=== PATIENT | male | born 1945 | race Caucasian/White ===

== ENCOUNTER 2022-07-04 16:18 | Inpatient (IN) | payer OTHER, SELFPAY ==
[2022-07-04 17:20] LABS: #Basophils 0.1 thou/uL (0.0-0.2); #Eosinphils 0.3 thou/uL (0.0-0.7); #Lymphocytes 2.1 thou/uL (1.20-3.40); #Monocytes 1.1 thou/uL (0.11-0.59); #Neutrophils 7.5 thou/uL (1.40-6.50); %Basophils 0.8 % (0.0-1.0); %Eosinophils 2.7 % (0.0-10.0); %Lymphocytes 18.9 % (21.0-51.0); %Monocytes 10.1 % (0.0-10.0); %Neutrophils 67.5 % (42.0-75.0); Mean Corpuscular HGB CONC 33.6 g/dL (32.0-36.0); Mean Corpuscular Hemoglobin 31.1 pg (27.0-31.0); Mean Corpuscular Volume 92.4 fl (78.0-98.0); Mean Platelet Volume 7.3 fL (7.4-10.4); Platelet Count 248 10x3/uL (130-400); RBC Distribution Width 12.4 % (11.5-14.5); White Blood Cell (WBC) Count 11.1 10x3/uL (4.8-10.8)
[2022-07-04 17:50] LABS: ALT (SGPT) 15 U/L (8-55); AST (SGOT) 16 U/L (5-34); Albumin 3.8 g/dL (3.4-4.8); Alkaline Phosphatase 85 U/L (40-110); Anion Gap 14 mmol/L (10-20); BUN (Urea Nitrogen) 24 mg/dL (8.4-25.7); Bilirubin, Total 0.2 mg/dL (0.2-1.2); Calc. Creatinine Clearance 0 mL/min (70-130); Calcium 9.5 mg/dL (7.8-10.44); Carbon Dioxide 27 mmol/L (23-31); Chloride 94 mmol/L (98-107); Estimated GFR 59; Globulin 3.8 g/dL (2.4-3.5); Glucose 208 mg/dL (83-110); Potassium 4.3 mmol/L (3.5-5.1); Protein, Total 7.6 g/dL (5.8-8.1); Sodium 131 mmol/L (136-145)
[2022-07-04] MEDS ORDERED: Bacitracin 1 PK ONE (17:51)
[2022-07-04] MEDS ORDERED: Aspirin Chewable 81 MG TAB ONE (18:04)
[2022-07-04] MEDS ORDERED: Ondansetron PF 4 MG/2 ML Vial ONE (18:04)
[2022-07-04] MEDS ORDERED: cefTRIAXone\\ROCEPHIN 2 GM VIAL ONE (18:04)
[2022-07-04 18:45] LABS: Bacteria/HPF None Seen HPF (None Seen); Bilirubin Negative (Negative); Blood, Urine Negative (Negative); Clarity Clear (Clear); Glucose, Urine (Dipstick) 30 mg/dL (Negative); Ketone, Urine Negative (Negative); Leukocyte Negative Leu/uL (Negative); Nitrite Negative (Negative); Protein, Urine (Dipstick) 30 mg/dL (Neg-Trace); RBC/HPF None Seen HPF (0-3); Specific Gravity, Urine 1.011 (1.002-1.036); Squamous Epithelial None Seen HPF (0-3); Urobilinogen Normal mg/dL (Less than 2); WBC/HPF None Seen HPF (0-3)
[2022-07-04] MEDS ORDERED: Dextrose 5% in Water 1,000 ML IV PRN (19:01)
[2022-07-04] MEDS ORDERED: Acetaminophen 325 MG TAB PO PRN (19:01)
[2022-07-04] MEDS ORDERED: Ondansetron ODT 4 MG TAB PO PRN (19:01)
[2022-07-04] MEDS ORDERED: Dextrose 50% Abboject 50 ML SYRINGE SLOW IVP PRN (19:01)
[2022-07-04] MEDS ORDERED: Azithromycin 500 MG VIAL ONE (19:46)
[2022-07-04 20:15] LABS: Hemoglobin A1c 7.9 % (4.0-6.0)
[2022-07-04 20:28] LABS: Troponin I 0.012 ng/mL (< 0.028)
[2022-07-04] MEDS ORDERED: hydrALAZINE 20 MG/ML VIAL SLOW IVP PRN (20:35)
[2022-07-04 21:07] VITALS: BMI 32.3
[2022-07-04] MEDS: metFORMIN 500 MG TAB PO SCH (22:14)
[2022-07-04 22:49] LABS: SARS-CoV-2 NAA Rapid Test Not Detected (NotDetected)
[2022-07-04 23:46] LABS: Troponin I 0.012 ng/mL (< 0.028)
[2022-07-05 05:10] LABS: #Basophils 0.1 thou/uL (0.0-0.2); #Eosinphils 0.3 thou/uL (0.0-0.7); #Lymphocytes 1.7 thou/uL (1.20-3.40); #Neutrophils 7.6 thou/uL (1.40-6.50); %Basophils 0.5 % (0.0-1.0); %Eosinophils 2.5 % (0.0-10.0); %Lymphocytes 16.5 % (21.0-51.0); %Monocytes 9.2 % (0.0-10.0); %Neutrophils 71.4 % (42.0-75.0); Hemoglobin 13.8 g/dL (14.0-18.0); Mean Corpuscular HGB CONC 32.3 g/dL (32.0-36.0); Mean Corpuscular Hemoglobin 30.4 pg (27.0-31.0); Mean Corpuscular Volume 94.3 fl (78.0-98.0); Mean Platelet Volume 7.3 fL (7.4-10.4); Platelet Count 238 10x3/uL (130-400); RBC Distribution Width 12.6 % (11.5-14.5); Red Blood Cell (RBC) Count 4.54 mill/uL (4.70-6.10); White Blood Cell (WBC) Count 10.6 10x3/uL (4.8-10.8)
[2022-07-05 05:32] LABS: Anion Gap 12 mmol/L (10-20); BUN (Urea Nitrogen) 17 mg/dL (8.4-25.7); Calc. Creatinine Clearance 107 mL/min (70-130); Carbon Dioxide 29 mmol/L (23-31); Cardiac Risk 2.5 (Less than 4.5); Chloride 94 mmol/L (98-107); Cholesterol 170 mg/dl (< 200 Desired); Estimated GFR 88; Glucose 211 mg/dL (83-110); HDL Cholesterol 67 mg/dL (>60 Neg Risk); LDL Cholesterol, Calculated 90 mg/dL; Potassium 4.8 mmol/L (3.5-5.1); Sodium 130 mmol/L (136-145); Triglycerides 65 mg/dL (Less than 150)
[2022-07-05] MEDS: HumaLOG 300 UNITS/3 ML VIAL SC PRN ×2 (06:30→12:34)
[2022-07-05] MEDS: Lorazepam 1 MG TAB PO SCH (09:17)
[2022-07-05] MEDS: metFORMIN 500 MG TAB PO SCH ×2 (09:17→16:44)
[2022-07-05] MEDS ORDERED: predniSONE 20 MG TAB PO SCH (12:45)
[2022-07-05] MEDS: Ipratropium/Albuterol 3 ML NEB NEB SCH ×2 (14:16→18:07)
[2022-07-05] MEDS ORDERED: Ipratropium/Albuterol 3 ML NEB NEB PRN (15:00)
[2022-07-05] MEDS ORDERED: Ipratropium/Albuterol 3 ML NEB NEB SCH (15:00)
[2022-07-05] MEDS ORDERED: cefTRIAXone\\ROCEPHIN 1 GM in Sodium Chloride 0.9% 100 ML IVPB SCH (18:00)
[2022-07-05] MEDS ORDERED: Azithromycin 500 MG in Sodium Chloride 0.9% 250 ML 250 ML IVPB SCH (18:00)
[2022-07-05] MEDS ORDERED: HumaLOG 300 UNITS/3 ML VIAL SC PRN (22:02)
[2022-07-06 05:05] LABS: #Eosinphils 0.1 thou/uL (0.0-0.7); #Lymphocytes 2.5 thou/uL (1.20-3.40); #Monocytes 1.1 thou/uL (0.11-0.59); %Basophils 0.2 % (0.0-1.0); %Eosinophils 0.9 % (0.0-10.0); %Lymphocytes 19.7 % (21.0-51.0); %Monocytes 8.4 % (0.0-10.0); %Neutrophils 70.7 % (42.0-75.0); Hemoglobin 14.6 g/dL (14.0-18.0); Mean Corpuscular HGB CONC 32.5 g/dL (32.0-36.0); Mean Corpuscular Hemoglobin 30.5 pg (27.0-31.0); Mean Corpuscular Volume 93.9 fl (78.0-98.0); Mean Platelet Volume 7.4 fL (7.4-10.4); Platelet Count 261 10x3/uL (130-400); RBC Distribution Width 12.5 % (11.5-14.5); Red Blood Cell (RBC) Count 4.78 mill/uL (4.70-6.10); White Blood Cell (WBC) Count 12.7 10x3/uL (4.8-10.8)
[2022-07-06 05:36] LABS: Anion Gap 12 mmol/L (10-20); BUN (Urea Nitrogen) 19 mg/dL (8.4-25.7); Calc. Creatinine Clearance 90 mL/min (70-130); Calcium 9.5 mg/dL (7.8-10.44); Carbon Dioxide 30 mmol/L (23-31); Chloride 92 mmol/L (98-107); Estimated GFR 72; Glucose 203 mg/dL (83-110); Potassium 4.2 mmol/L (3.5-5.1); Sodium 130 mmol/L (136-145)
[2022-07-06] MEDS: HumaLOG 300 UNITS/3 ML VIAL SC PRN (06:03)
[2022-07-06] MEDS ORDERED: predniSONE 20 MG TAB PO SCH (08:00)
[2022-07-06] MEDS: metFORMIN 500 MG TAB PO SCH (09:25)
[2022-07-06] MEDS: Lorazepam 1 MG TAB PO SCH (09:26)
[2022-07-06] MEDS: Ipratropium/Albuterol 3 ML NEB NEB SCH (11:00)
[2022-07-06] MEDS ORDERED: Ipratropium/Albuterol 3 ML NEB NEB SCH (13:00)
[2022-07-06 15:56] VITALS: BP 133/82; TEMP 98.8
== END 2022-07-06 17:07 | disposition home or self-care (01) | DRG 193 ==
LOC: ERS 16:18 → ERHOLD 18:17 → 2SW 22:43 → OBSVTOIN 07-05 16:26
PROVIDERS: ADMIT Family Medicine; ATTEND Family Medicine
DX: J12.9 Viral pneumonia, unspecified (principal); J96.01 Acute respiratory failure with hypoxia; J44.1 Chronic obstructive pulmonary disease with (acute) exacerbation; J44.0 Chronic obstructive pulmonary disease with (acute) lower respiratory infection; R44.3 Hallucinations, unspecified; I10 Essential (primary) hypertension; E11.9 Type 2 diabetes mellitus without complications; F41.9 Anxiety disorder, unspecified; Z20.822 Contact with and (suspected) exposure to COVID-19; Z79.899 Other long term (current) drug therapy; Z79.84 Long term (current) use of oral hypoglycemic drugs; Z98.890 Other specified postprocedural states
CPT/HCPCS: 36415; 36416; 71045; 80048; 80053; 80061; 81003; 81015; 83036; 83605; 83880; 84145; 84443; 84484; 85025; 87040; 93005; 94640; 97139; J0456; J0696; J1650; J1815; J2405; J7512; J7620

== ENCOUNTER 2022-09-14 15:19 | Inpatient (IN) | payer OTHER, SELFPAY ==
[2022-09-14 15:51] LABS: Bacteria/HPF None Seen HPF (None Seen); Bilirubin Negative (Negative); Blood, Urine Negative (Negative); Clarity Clear (Clear); Glucose, Urine (Dipstick) >=1000 mg/dL (Negative); Ketone, Urine Negative (Negative); Leukocyte Negative Leu/uL (Negative); Nitrite Negative (Negative); Protein, Urine (Dipstick) 70 mg/dL (Neg-Trace); RBC/HPF None Seen HPF (0-3); Specific Gravity, Urine 1.016 (1.002-1.036); Squamous Epithelial None Seen HPF (0-3); Urobilinogen Normal mg/dL (Less than 2); WBC/HPF 0-3 HPF (0-3); pH, Urine 7.5 (5.0-9.0)
[2022-09-14] MEDS ORDERED: Cefepime 2 GM VIAL ONE (16:08)
[2022-09-14] MEDS ORDERED: methylPREDNISolone Sod Succ/PF 125 MG/2 ML VIAL ONE (16:08)
[2022-09-14 16:36] LABS: #Basophils 0.1 thou/uL (0.0-0.2); #Eosinphils 0.1 thou/uL (0.0-0.7); #Lymphocytes 1.5 thou/uL (1.20-3.40); #Monocytes 1.3 thou/uL (0.11-0.59); #Neutrophils 13.2 thou/uL (1.40-6.50); %Basophils 0.4 % (0.0-1.0); %Eosinophils 0.5 % (0.0-10.0); %Monocytes 8.3 % (0.0-10.0); %Neutrophils 81.8 % (42.0-75.0); Hemoglobin 13.5 g/dL (14.0-18.0); Mean Corpuscular HGB CONC 32.9 g/dL (32.0-36.0); Mean Corpuscular Hemoglobin 30.5 pg (27.0-31.0); Mean Corpuscular Volume 92.8 fl (78.0-98.0); Mean Platelet Volume 7.5 fL (7.4-10.4); Platelet Count 199 10x3/uL (130-400); RBC Distribution Width 12.1 % (11.5-14.5); Red Blood Cell (RBC) Count 4.43 mill/uL (4.70-6.10); White Blood Cell (WBC) Count 16.1 10x3/uL (4.8-10.8)
[2022-09-14 16:58] LABS: ALT (SGPT) 17 U/L (8-55); AST (SGOT) 11 U/L (5-34); Albumin 3.7 g/dL (3.4-4.8); Alkaline Phosphatase 91 U/L (40-110); Anion Gap 13 mmol/L (10-20); BUN (Urea Nitrogen) 16 mg/dL (8.4-25.7); Bilirubin, Total 0.4 mg/dL (0.2-1.2); Calc. Creatinine Clearance 0 mL/min (70-130); Calcium 8.9 mg/dL (7.8-10.44); Carbon Dioxide 28 mmol/L (23-31); Chloride 93 mmol/L (98-107); Estimated GFR 78; Globulin 3.6 g/dL (2.4-3.5); Glucose 288 mg/dL (83-110); Potassium 4.2 mmol/L (3.5-5.1); Protein, Total 7.3 g/dL (5.8-8.1); Sodium 130 mmol/L (136-145)
[2022-09-14] MEDS ORDERED: VANCOMYCIN 2 GRAM/500 ML BAG 2 GM in Premix Bag 1 BAG IVPB SCH (17:00)
[2022-09-14] MEDS ORDERED: Ondansetron ODT 4 MG TAB PO PRN (19:04)
[2022-09-14] MEDS ORDERED: Ondansetron PF 4 MG/2 ML Vial IVP PRN (19:04)
[2022-09-14] MEDS ORDERED: Dextrose 5% in Water 1,000 ML IV PRN (19:04)
[2022-09-14] MEDS ORDERED: HYDROcodone/Acetaminophen 5/325 mg Tablet PO PRN (19:04)
[2022-09-14] MEDS ORDERED: Dextrose 50% Abboject 50 ML SYRINGE SLOW IVP PRN (19:04)
[2022-09-14] MEDS ORDERED: Acetaminophen 500 MG TAB PO SCH (20:30)
[2022-09-14 20:55] VITALS: BMI 33.8
[2022-09-14] MEDS: HumaLOG 300 UNITS/3 ML VIAL SC PRN (21:09)
[2022-09-14 21:32] LABS: Hemoglobin A1c 8.1 % (4.0-6.0)
[2022-09-14] MEDS: Azithromycin 500 MG in Sodium Chloride 0.9% 250 ML 250 ML IVPB SCH (21:33)
[2022-09-14] MEDS: methylPREDNISolone Sod Succ 40 MG VIAL IVP SCH (21:44)
[2022-09-15] MEDS: Ipratropium Bromide 2.5 ml Neb NEB SCH ×5 (01:41→14:48)
[2022-09-15] MEDS: Cefepime 1 GM in Sodium Chloride 0.9% 100 ML IVPB SCH ×2 (04:54→15:03)
[2022-09-15] MEDS: methylPREDNISolone Sod Succ 40 MG VIAL IVP SCH ×4 (04:58→23:16)
[2022-09-15 05:46] LABS: #Lymphocytes 0.7 thou/uL (1.20-3.40); #Monocytes 0.2 thou/uL (0.11-0.59); #Neutrophils 13.3 thou/uL (1.40-6.50); %Basophils 0.1 % (0.0-1.0); %Eosinophils 0.2 % (0.0-10.0); %Lymphocytes 4.8 % (21.0-51.0); %Monocytes 1.2 % (0.0-10.0); %Neutrophils 93.7 % (42.0-75.0); Hemoglobin 13.6 g/dL (14.0-18.0); Mean Corpuscular HGB CONC 33.6 g/dL (32.0-36.0); Mean Corpuscular Hemoglobin 31.4 pg (27.0-31.0); Mean Corpuscular Volume 93.5 fl (78.0-98.0); Mean Platelet Volume 7.7 fL (7.4-10.4); Platelet Count 222 10x3/uL (130-400); RBC Distribution Width 12.2 % (11.5-14.5); Red Blood Cell (RBC) Count 4.33 mill/uL (4.70-6.10); White Blood Cell (WBC) Count 14.2 10x3/uL (4.8-10.8)
[2022-09-15] MEDS: VANCOMYCIN 1.25 GM/250 ML BAG 1.25 GM in Premix Bag 1 BAG IVPB SCH ×2 (06:08→17:21)
[2022-09-15 06:14] LABS: Anion Gap 15 mmol/L (10-20); BUN (Urea Nitrogen) 19 mg/dL (8.4-25.7); Calc. Creatinine Clearance 87 mL/min (70-130); Calcium 9.4 mg/dL (7.8-10.44); Carbon Dioxide 25 mmol/L (23-31); Chloride 93 mmol/L (98-107); Estimated GFR 65; Potassium 4.9 mmol/L (3.5-5.1); Sodium 128 mmol/L (136-145)
[2022-09-15 06:16] LABS: Glucose 465 mg/dL (83-110)
[2022-09-15] MEDS: HumaLOG 300 UNITS/3 ML VIAL SC PRN ×4 (06:30→20:48)
[2022-09-15] MEDS ORDERED: Scopolamine 1.5 mg/72 hour Patch TD SCH (07:00)
[2022-09-15] MEDS: Lorazepam 1 MG TAB PO SCH (07:56)
[2022-09-15] MEDS ORDERED: Lisinopril 5 MG TAB PO SCH (13:00)
[2022-09-15] MEDS ORDERED: Amlodipine 5 MG TAB PO SCH (13:00)
[2022-09-15] MEDS ORDERED: risperiDONE 1 MG TAB PO SCH (14:45)
[2022-09-15] MEDS ORDERED: Ipratropium Bromide 2.5 ml Neb NEB PRN (14:55)
[2022-09-15] MEDS ORDERED: cloNIDine 0.1 MG TAB PO SCH (20:15)
[2022-09-15] MEDS ORDERED: hydrOXYzine Pamoate 25 mg Capsule PO SCH (20:30)
[2022-09-15] MEDS: Azithromycin 500 MG in Sodium Chloride 0.9% 250 ML 250 ML IVPB SCH (20:45)
[2022-09-16] MEDS: Cefepime 1 GM in Sodium Chloride 0.9% 100 ML IVPB SCH ×2 (03:07→17:19)
[2022-09-16] MEDS: methylPREDNISolone Sod Succ 40 MG VIAL IVP SCH ×4 (05:30→23:16)
[2022-09-16 06:23] LABS: Vancomycin, Trough 9.3 ug/mL
[2022-09-16] MEDS: Vancomycin 1.5 GRAM/300 ML BAG 1.5 GM in Premix Bag 1 BAG IVPB SCH ×2 (06:56→18:16)
[2022-09-16] MEDS: VANCOMYCIN 1.25 GM/250 ML BAG 1.25 GM in Premix Bag 1 BAG IVPB SCH (06:58)
[2022-09-16] MEDS: Lorazepam 1 MG TAB PO SCH (08:08)
[2022-09-16] MEDS: risperiDONE 1 MG TAB PO SCH (08:08)
[2022-09-16] MEDS ORDERED: Lisinopril 5 MG TAB PO SCH ×2 (09:00→13:15)
[2022-09-16] MEDS ORDERED: Amlodipine 5 MG TAB PO SCH ×2 (09:00→13:15)
[2022-09-16] MEDS ORDERED: Insulin Glargine 30 UNITS/0.3 ML VIAL SC SCH (13:15)
[2022-09-16] MEDS: HumaLOG 300 UNITS/3 ML VIAL SC PRN ×2 (15:35→21:59)
[2022-09-16] MEDS: Azithromycin 500 MG in Sodium Chloride 0.9% 250 ML 250 ML IVPB SCH (20:38)
[2022-09-16] MEDS: Acetaminophen 325 MG TAB PO PRN (23:14)
[2022-09-17] MEDS: Acetaminophen 325 MG TAB PO PRN (04:36)
[2022-09-17] MEDS: Cefepime 1 GM in Sodium Chloride 0.9% 100 ML IVPB SCH (04:38)
[2022-09-17] MEDS: methylPREDNISolone Sod Succ 40 MG VIAL IVP SCH (05:16)
[2022-09-17 05:26] LABS: #Eosinphils 0.1 thou/uL (0.0-0.7); #Lymphocytes 0.9 thou/uL (1.20-3.40); #Monocytes 0.8 thou/uL (0.11-0.59); #Neutrophils 15.8 thou/uL (1.40-6.50); %Basophils 0.1 % (0.0-1.0); %Eosinophils 0.4 % (0.0-10.0); %Lymphocytes 5.1 % (21.0-51.0); %Monocytes 4.8 % (0.0-10.0); %Neutrophils 89.7 % (42.0-75.0); Hemoglobin 14.2 g/dL (14.0-18.0); Mean Corpuscular HGB CONC 34.9 g/dL (32.0-36.0); Mean Corpuscular Hemoglobin 32.1 pg (27.0-31.0); Mean Corpuscular Volume 92.1 fl (78.0-98.0); Mean Platelet Volume 7.6 fL (7.4-10.4); Platelet Count 247 10x3/uL (130-400); RBC Distribution Width 11.9 % (11.5-14.5); Red Blood Cell (RBC) Count 4.41 mill/uL (4.70-6.10); White Blood Cell (WBC) Count 17.6 10x3/uL (4.8-10.8)
[2022-09-17 05:28] LABS: Anion Gap 13 mmol/L (10-20); BUN (Urea Nitrogen) 22 mg/dL (8.4-25.7); Calc. Creatinine Clearance 96 mL/min (70-130); Calcium 8.8 mg/dL (7.8-10.44); Carbon Dioxide 27 mmol/L (23-31); Chloride 89 mmol/L (98-107); Estimated GFR 73; Glucose 301 mg/dL (83-110); Potassium 4.5 mmol/L (3.5-5.1); Sodium 124 mmol/L (136-145)
[2022-09-17] MEDS: HumaLOG 300 UNITS/3 ML VIAL SC PRN ×2 (06:38→11:38)
[2022-09-17] MEDS ORDERED: Vancomycin 1.5 GRAM/300 ML BAG 1.5 GM in Premix Bag 1 BAG IVPB SCH (08:00)
[2022-09-17] MEDS ORDERED: predniSONE 20 MG TAB PO SCH (08:00)
[2022-09-17] MEDS ORDERED: Amlodipine 10 MG TAB PO SCH (09:00)
[2022-09-17] MEDS ORDERED: Lisinopril 10 MG TAB PO SCH (09:00)
[2022-09-17] MEDS ORDERED: Insulin Glargine 30 UNITS/0.3 ML VIAL SC SCH (09:00)
[2022-09-17] MEDS ORDERED: Lorazepam 1 MG TAB PO SCH (09:00)
[2022-09-17] MEDS: risperiDONE 1 MG TAB PO SCH (09:52)
[2022-09-17 11:24] VITALS: TEMP 98.5
[2022-09-17 17:08] VITALS: BP 182/98
== END 2022-09-17 14:30 | disposition left against medical advice (07) | DRG 871 ==
LOC: ERS 15:19 → 2SW 19:11 → OBSVTOIN 19:12
PROVIDERS: ADMIT Internal Medicine; ATTEND Internal Medicine
DX: A41.9 Sepsis, unspecified organism (principal); J96.01 Acute respiratory failure with hypoxia; L03.113 Cellulitis of right upper limb; J44.1 Chronic obstructive pulmonary disease with (acute) exacerbation; I10 Essential (primary) hypertension; F41.9 Anxiety disorder, unspecified; M71.521 Other bursitis, not elsewhere classified, right elbow; F43.10 Post-traumatic stress disorder, unspecified; F17.210 Nicotine dependence, cigarettes, uncomplicated; Z79.899 Other long term (current) drug therapy; Z79.84 Long term (current) use of oral hypoglycemic drugs; Z98.890 Other specified postprocedural states; Z82.49 Family history of ischemic heart disease and other diseases of the circulatory system; Z80.9 Family history of malignant neoplasm, unspecified; Z83.6 Family history of other diseases of the respiratory system
CPT/HCPCS: 36415; 36416; 71045; 80048; 80053; 80202; 81003; 81015; 83036; 83605; 83880; 85025; 87040; 87086; 93005; 94640; 96365; 96366; 96367; 96375; J0456; J0692; J1815; J2920; J2930; J3370; J3490; J7050; J7512; Q0177

== ENCOUNTER 2022-09-18 14:46 | Emergency (ER) | payer OTHER ==
[2022-09-18 15:33] LABS: #Eosinphils 0.1 thou/uL (0.0-0.7); #Lymphocytes 1.9 thou/uL (1.20-3.40); #Monocytes 1.7 thou/uL (0.11-0.59); #Neutrophils 10.9 thou/uL (1.40-6.50); %Basophils 0.2 % (0.0-1.0); %Eosinophils 0.8 % (0.0-10.0); %Lymphocytes 12.7 % (21.0-51.0); %Monocytes 11.7 % (0.0-10.0); %Neutrophils 74.6 % (42.0-75.0); Hemoglobin 15.3 g/dL (14.0-18.0); Mean Corpuscular HGB CONC 34.6 g/dL (32.0-36.0); Mean Corpuscular Hemoglobin 32.2 pg (27.0-31.0); Mean Platelet Volume 6.9 fL (7.4-10.4); Platelet Count 231 10x3/uL (130-400); RBC Distribution Width 12.2 % (11.5-14.5); Red Blood Cell (RBC) Count 4.74 mill/uL (4.70-6.10); White Blood Cell (WBC) Count 14.6 10x3/uL (4.8-10.8)
[2022-09-18] MEDS ORDERED: methylPREDNISolone Sod Succ/PF 125 MG/2 ML VIAL ONE (15:35)
[2022-09-18] MEDS ORDERED: Ipratropium/Albuterol 3 ML NEB ONE (15:38)
[2022-09-18] MEDS ORDERED: Cefepime 2 GM VIAL ONE (15:51)
[2022-09-18 15:52] LABS: ALT (SGPT) 21 U/L (8-55); AST (SGOT) 19 U/L (5-34); Albumin 3.4 g/dL (3.4-4.8); Alkaline Phosphatase 93 U/L (40-110); Anion Gap 13 mmol/L (10-20); BUN (Urea Nitrogen) 19 mg/dL (8.4-25.7); Bilirubin, Total 0.4 mg/dL (0.2-1.2); CK (CPK) 199 U/L (30-200); Calc. Creatinine Clearance 0 mL/min (70-130); Calcium 8.2 mg/dL (7.8-10.44); Carbon Dioxide 27 mmol/L (23-31); Chloride 91 mmol/L (98-107); Estimated GFR 78; Globulin 3.1 g/dL (2.4-3.5); Glucose 313 mg/dL (83-110); Potassium 4.1 mmol/L (3.5-5.1); Protein, Total 6.5 g/dL (5.8-8.1); Sodium 127 mmol/L (136-145)
[2022-09-18 15:59] LABS: Bilirubin Negative (Negative); Blood, Urine Negative (Negative); Clarity Clear (Clear); Glucose, Urine (Dipstick) >=1000 mg/dL (Negative); Ketone, Urine Negative (Negative); Leukocyte Negative Leu/uL (Negative); Nitrite Negative (Negative); Protein, Urine (Dipstick) 20 mg/dL (Neg-Trace); Specific Gravity, Urine 1.008 (1.002-1.036); Urobilinogen Normal mg/dL (Less than 2)
[2022-09-18] MEDS ORDERED: Vancomycin 1 GM/200 ML (FROZEN) BAG ONE (17:00)
== END 2022-09-18 20:17 | disposition home or self-care (01) ==
LOC: ERS 14:46
DX: J44.1 Chronic obstructive pulmonary disease with (acute) exacerbation (principal); D72.829 Elevated white blood cell count, unspecified; E78.5 Hyperlipidemia, unspecified; I10 Essential (primary) hypertension; E11.9 Type 2 diabetes mellitus without complications; J44.9 Chronic obstructive pulmonary disease, unspecified; Z87.891 Personal history of nicotine dependence; Z79.84 Long term (current) use of oral hypoglycemic drugs
CPT/HCPCS: 36415; 36416; 71045; 80053; 81003; 82550; 83605; 83880; 84484; 85025; 87040; 93005; 94640; 94760; 96365; 96366; 96367; 96375; J0692; J2930; J3370-JW; J7620